=== PATIENT | female | born 1975 | race African-American/Black ===

== ENCOUNTER 2023-06-04 02:25 | Emergency (ER) | payer MEDICAID ==
[~2023-06-04] VITALS: Ht 162.6 cm; Wt 72.0 kg
[2023-06-04 02:27] VITALS: BP 195/110; PULSE 118; RESP 18; TEMP 98.5; O2SAT 99
[2023-06-04] MEDS ORDERED: FLUORESCEIN SODIUM 1MG/STRIP BOTHEYE ONE (03:15)
[2023-06-04] MEDS ORDERED: TETRACAINE 0.5% OPHTH DROPS 4ML BOTHEYE ONE (03:15)
[2023-06-04] MEDS ORDERED: HYDROCODONE/ACETAMINOPHEN 5/325MG TABLET PO ONE (03:45)
[2023-06-04] MEDS ORDERED: ACET-2708 MT (06:41)
[2023-06-04] MEDS ORDERED: NAPR-679 MT (06:41)
[2023-06-04] MEDS ORDERED: AMOX1TAB16 MT (06:44)
== END 2023-06-04 06:55 | disposition home or self-care (01) ==
LOC: ER 02:25
DX: S02.5XXA Fracture of tooth (traumatic), initial encounter for closed fracture (principal); R51.9 Headache, unspecified; I10 Essential (primary) hypertension; Z86.73 Personal history of transient ischemic attack (TIA), and cerebral infarction without residual deficits; Y08.89XA Assault by other specified means, initial encounter; Y93.89 Activity, other specified; Y92.89 Other specified places as the place of occurrence of the external cause; Y99.8 Other external cause status
CPT/HCPCS: 70486; 71101; 73030; 73560; 81025; 99284